=== PATIENT | male | born 1985 | race Caucasian/White ===

== ENCOUNTER 2020-11-28 13:52 | Emergency (ER) | payer OTHER ==
[2020-11-28 14:03] VITALS: TEMP 98.1
--- NOTE | 2020-11-28 14:06 | ED ---
Medical Clearance HPI - General Chief complaint: Medical Clearance Stated complaint: Skilled Nursing clearance Time Seen by Provider: 11/28/20 14:00 Source: police Mode of arrival: ambulatory - History of Present Illness Initial comments: Dictation was produced using [employer] dictation software. please excuse any grammatical, word or spelling errors. Chief Complaint: 35-year-old male presents with [facility] for fpc clearance History of Present Illness: Patient is a 35-year-old male who presents emergency department for fpc clearance. Patient was pulled over. He is found to have elevated alcohol levels. Patient had no complaints. No concern for medical issues. According to [facility] it is our policy to bring patient to the emergency room for fpc clearance for elevated breath alcohol test. Patient reports he drinks alcohol on a daily basis. The ROS documented in this emergency department record has been reviewed and confirmed by me. Those systems with pertinent positive or negative responses have been documented in the HPI. All other systems are other negative and/or noncontributory. PHYSICAL EXAM: General Impression: Alert and oriented x3, not in acute distress HEENT: Normocephalic atraumatic, extra-ocular movements intact, pupils equal and reactive to light bilaterally, mucous membranes moist. Cardiovascular: Heart regular rate and rhythm Chest: Able to complete full sentences, no retractions, no tachypnea Abdomen: abdomen soft, non-tender, non-distended, no organomegaly Musculoskeletal: Pulses present and equal in all extremities, no peripheral edema Motor: no focal deficits noted Neurological: CN II-XII grossly intact, no focal motor or sensory deficits noted Skin: Intact with no visualized rashes Psych: Normal affect and mood ED course: 35-year-old well-appearing male presents to the emergency department for fpc clearance. Signs upon arrival are within acceptable limits. Patient has no medical complaints. Physical examination is benign. Patient medically cleared for fpc. Review of Systems ROS Statement: Those systems with pertinent positive or pertinent negative responses have been documented in the HPI. ROS Other: All systems not noted in ROS Statement are negative. Past Medical History Past Medical History: No Reported History History of Any Multi-Drug Resistant Organisms: None Reported Past Surgical History: No Surgical Hx Reported Past Psychological History: No Psychological Hx Reported Smoking Status: Current every day smoker Past Alcohol Use History: Daily Past Drug Use History: None Reported General Exam Limitations: no limitations Course Vital Signs 11/28/20 13:56 Temperature 98.1 F Pulse Rate 60 Respiratory 18 Rate Blood Pressure 130/90 O2 Sat by Pulse 96 Oximetry Disposition Clinical Impression: Medical clearance for incarceration Disposition: OTHER INSTITUTION NOT DEFINED Condition: Good Instructions (If sedation given, give patient instructions): Alcohol Intoxication (ED) Is patient prescribed a controlled substance at d/c from ED?: No Referrals: None,Stated [Primary Care Provider] - 1-2 days - Out of Hospital Transfer - Req. Specs Out of Hospital Transfer - Requested Specifics: Other Non-Acute (Skilled Nursing)
[2020-11-28 14:14] VITALS: BP 136/77; PULSE 64; RESP 20
== END 2020-11-28 14:12 | disposition other institution (70) ==
LOC: EC 13:52
DX: Z02.89 Encounter for other administrative examinations (principal); F17.200 Nicotine dependence, unspecified, uncomplicated
CPT/HCPCS: 99283